=== PATIENT | female | born 1950 | race Hispanic/Latino ===

== ENCOUNTER 2022-02-18 06:11 | Day surgery (SDC) | payer OTHER ==
[2022-02-13 10:04] LABS: BUN Blood Urea Nitrogen 18 mg/dL (7-18); Bicarbonate 31 mmol/L (21-32); Glucose Level 117 mg/dL (74-106); Potassium 3.9 mmol/L (3.5-5.1); Sodium Level 142 mmol/L (136-145)
[2022-02-18] MEDS ORDERED: Ringers Lactate 1,000 ML IV ONE ×2 (06:36→09:29)
[2022-02-18] MEDS ORDERED: CEFAZOLIN/SWI 2gm 2 GM/20 ML SYR ONE (06:37)
[2022-02-18] MEDS ORDERED: ROCURONIUM 50 MG/5 ML VIAL IV ONE (06:42)
[2022-02-18] MEDS ORDERED: propofoL 200 MG/20 ML VIAL IV ONE (06:42)
[2022-02-18] MEDS ORDERED: FENTANYL CITR 100 MCG/2 ML ONE (06:42)
[2022-02-18] MEDS ORDERED: MIDAZOLAM HCL 2 MG/2 ML INJ ONE (06:43)
[2022-02-18] MEDS ORDERED: ONDANSETRON 4 MG/2 ML VIAL ONE (06:43)
[2022-02-18] MEDS ORDERED: LIDOCAINE 2% MPF 5 ML VIAL ONE (06:43)
[2022-02-18] MEDS ORDERED: ACETAMINOPHEN 500 MG TAB ONE (06:56)
[2022-02-18] MEDS ORDERED: LIDOCAINE 1% W/EPI 1:100,000 10 ML VIAL ONE (06:56)
[2022-02-18] MEDS: BUPIVACAINE 0.25% PF 10 ML VIAL ONE ×2 (08:07→08:17)
[2022-02-18] MEDS ORDERED: EPHEDRINE SULF 50 MG/ML VIAL ONE (08:14)
[2022-02-18] MEDS ORDERED: LIDOCAINE 1% MPF 30 ML VIAL ONE (08:34)
[2022-02-18 12:35] VITALS: BP 116/54; TEMP 97.5; O2SAT 97
--- NOTE | 2022-02-18 17:22 | RAD REPORT ---
EXAM DESCRIPTION: RAD - Fluoroscopy <1 Hour - 02/18/2022 5:04 pm FINDINGS: There were 43 portable C-arm images submitted from a fluoroscopic assisted sacral neural m odulation procedure. No suspicious or unexpected findings. Fluoro time was 4.8 minutes. Cumulative dose was 83.0 mGy.
== END 2022-02-18 11:45 | disposition home or self-care (01) ==
LOC: OR 06:11
PROVIDERS: ATTEND Obstetrics & Gynecology
PROC: 4A1104G Monitoring of Peripheral Nervous Electrical Activity, Intraoperative, Open Approach (ICD-10-PCS; principal; 2022-02-18 07:30)
DX: N32.81 Overactive bladder (principal); N95.2 Postmenopausal atrophic vaginitis; R39.14 Feeling of incomplete bladder emptying; Z20.822 Contact with and (suspected) exposure to COVID-19
CPT/HCPCS: 53899; 80048; 36415; U0002; J2704; J2250; J3010; J0690; J7120 ×2; J2405; 76000

== ENCOUNTER 2022-03-07 06:40 | Day surgery (SDC) | payer OTHER ==
[2022-03-07] MEDS ORDERED: Ringers Lactate 1,000 ML IV ONE (06:59)
[2022-03-07] MEDS ORDERED: LIDOCAINE 1% W/EPI 1:100,000 MDV 50 ML VIAL ONE (06:59)
[2022-03-07] MEDS ORDERED: CEFAZOLIN/SWI 2gm 2 GM/20 ML SYR ONE (06:59)
[2022-03-07] MEDS ORDERED: FENTANYL CITR 100 MCG/2 ML ONE (08:23)
[2022-03-07] MEDS ORDERED: propofoL 200 MG/20 ML VIAL IV ONE ×2 (08:23)
[2022-03-07] MEDS ORDERED: LIDOCAINE 2% MPF 5 ML VIAL ONE (08:23)
[2022-03-07] MEDS ORDERED: MIDAZOLAM HCL 2 MG/2 ML INJ ONE (08:23)
[2022-03-07 08:50] VITALS: BP 116/46; TEMP 97.2; O2SAT 100
--- NOTE | 2022-03-27 10:20 | OP ---
Date of Procedure: 03/08/2022 Surgeon: Priscila Bowie MD Switchboard Mechanic: None. Preoperative Diagnosis: Refractory overactive bladder and status post stage I InterStim. Patient be ing taken for permanent lead connection to the battery and implantation of battery. Postoperative Diagnoses: Refractory overactive bladder and status post stage I InterStim. Patient b eing taken for permanent lead connection to the battery and implantation of battery and scarred conne ctor leading to lead fracture, fractured tined lead. Procedure Performed: Removal of tined lead. Anesthesia: MAC plus local. Ebl: Minimal. Patient's condition is stable. No complications. No drains. Indications: The patient is a 71-year-old ready for implantation of the battery, consented and broug ht to the OR on the testing after stage I, the patient had an excellent response, despite lack of mot or response after initial stimulation placement. She had extremely good success in response to her urinary urgency and frequency, she wanted to go to the bladder replacement, however, on the day that she was seen in day 5 in the office with good respo nse, her wire had fractured from the connector to the external stimulator and this is most likely fro m her constant movement and turning around. The patient denied any physical manipulation of the lead leading to its fracture, so knowing and understanding that this was a problem, the patient had gone out for a trip and then returned for this procedure. She was taken back to the OR. 2 g of Ancef wer e given. SCD's were placed and started. Time-out was done. The procedure was started. Description Of Procedure: The patient was placed in prone position. Local area was prepped and drap ed and draped in a sterile fashion. Then, the lead that was extending out to the external stimulator seemed to be really pulled out, as the silk stitch that was tied to keep the unwinding of this wire had already come out through the external opening on the contralateral buttock, so a careful incision was made at the site where the battery would be implanted after injecting 0.25% Marcaine. Then, the incision was opened up. Then carefully using the lead that was identified here at this spot, a pocke t was made for the battery superiorly and inferiorly in a proper plane. Then, the lead wire was gent ly attempted to be pulled, as this seemed to be scarred and significantly pulled out towards the oppo site incision. Then, a tunnel was made with the help of a hemostat to gently pull the percutaneous e xtension, as I tried to pull this, there appeared to be lengthening of the lead, however, gently this connector was pulled out with the help of hemostats. Then, the hex wrench was used to loosen the 4 set screws, as this lead was pulled out through the connector and there was an area of the insulation outside the lead, connecting to the quadripolar leads, was exposed because of the fracture of insula tion and pulling of the inner wires, so this made the lead completely useless for leaving in place fo r implantation, so I went ahead and opened the incision and closed the sacrum on the left side, opene d up the incision and grasped the tined lead wire of a hemostat and with gentle constant tugs, the ti shan lead was pulled out through the foramina and the wire was completely retrieved through the batter y pocket incision. Once this was done, the entire lead was removed from both sides. The incision at the exit site of the contralateral site was closed with the help of 3-0 chromic. Then, the battery site was closed with the help of 3-0 chromic in 2 layers and then the parasacral incision was also cl osed with the help of 3-0 chromic with interrupted sutures. Hemostasis was excellent. EBL was minim al. There was complete removal of the tined lead. The patient was recovered from anesthesia and ins trument and sponge counts were correct at the end of the case. Estimated Blood Loss: Minimal. She was taken to PACU in stable condition and her was explained about the findings and the pr oblems of this placement. I advised the patient later when she was awake to proceed with stage I and stage II at the next appoi ntment, we will see her in the office and plan all this after . RADHA/TATYANA Voice ID: [id number] Report ID: [id number]
== END 2022-03-07 09:15 | disposition home or self-care (01) ==
LOC: OR 06:40
PROVIDERS: ATTEND Obstetrics & Gynecology
PROC: 01PY0MZ Removal of Neurostimulator Lead from Peripheral Nerve, Open Approach (ICD-10-PCS; principal; 2022-03-07 07:30)
DX: N32.81 Overactive bladder (principal); N95.2 Postmenopausal atrophic vaginitis; R39.14 Feeling of incomplete bladder emptying; E78.00 Pure hypercholesterolemia, unspecified; Z20.822 Contact with and (suspected) exposure to COVID-19
CPT/HCPCS: 64585; U0003; J2704 ×2; J2250; J3010; J0690; J7120

== ENCOUNTER 2022-06-02 10:42 | Day surgery (SDC) | payer OTHER ==
[2022-05-14 14:02] LABS: SARS-CoV-2 Antigen Rapid Res Negative (Negative)
[2022-06-02] MEDS ORDERED: Ringers Lactate 1,000 ML IV ONE ×2 (11:01→13:35)
[2022-06-02] MEDS: BUPIVACAINE 0.25% PF 30 ML VIAL ONE ×2 (11:41→12:33)
[2022-06-02] MEDS ORDERED: LIDOCAINE 1% 20 ML MDV ONE (11:43)
[2022-06-02] MEDS ORDERED: MIDAZOLAM HCL 2 MG/2 ML INJ ONE (11:56)
[2022-06-02] MEDS ORDERED: FENTANYL CITR 100 MCG/2 ML ONE (11:56)
[2022-06-02] MEDS ORDERED: LIDOCAINE 2% MPF 5 ML VIAL ONE (11:56)
[2022-06-02] MEDS ORDERED: propofoL 200 MG/20 ML VIAL IV ONE (11:56)
[2022-06-02] MEDS ORDERED: ROCURONIUM 50 MG/5 ML VIAL IV ONE (11:56)
[2022-06-02] MEDS ORDERED: ONDANSETRON 4 MG/2 ML VIAL ONE (11:56)
[2022-06-02] MEDS: CEFAZOLIN 2 GM IN 0.9% NACL 2 GM/100 ML BAG ONE ×2 (12:10→12:20)
[2022-06-02] MEDS ORDERED: KETOROLAC 30 MG/ML INJ ONE (13:54)
--- NOTE | 2022-06-02 15:20 | RAD REPORT ---
EXAM DESCRIPTION: RAD - Fluoroscopy <1 Hour - 06/02/2022 3:12 pm FINDINGS: Frontal and lateral portable C-arm views were obtained during sacral neurostimulator wire positioning. Fluoro time was 114.9 seconds.
[2022-06-02 16:04] VITALS: BP 122/65; TEMP 97.1; O2SAT 100
== END 2022-06-02 15:50 | disposition home or self-care (01) ==
LOC: OR 10:42
PROVIDERS: ATTEND Obstetrics & Gynecology
PROC: 01HY0MZ Insertion of Neurostimulator Lead into Peripheral Nerve, Open Approach (ICD-10-PCS; principal; 2022-06-02 12:00)
PROC: 0JH70BZ Insertion of Single Array Stimulator Generator into Back Subcutaneous Tissue and Fascia, Open Approach (ICD-10-PCS; 2022-06-02 12:00)
DX: N32.81 Overactive bladder (principal); N39.41 Urge incontinence; E78.00 Pure hypercholesterolemia, unspecified; Z20.822 Contact with and (suspected) exposure to COVID-19
CPT/HCPCS: 64581; 64590; 36415; 87811; J2704; J2250; J3010; J0690; J7120 ×2; J2405; 76000

== ENCOUNTER 2024-02-25 12:58 | Emergency (ER) | payer OTHER ==
--- NOTE | 2024-02-25 13:50 | ER ---
Nurse's Notes [facility] Name: Leticia Royal Age: 73 yrs Sex: Female : 1950 Arrival Date: 02/25/2024 Time: 12:58 Bed 14 Private MD: Diagnosis: Epistaxis Presentation: 02/24 13:23 Chief complaint: Patient states: nose bleed off and on x2 days and started bleeding as6 again this morning. Coronavirus screen: At this time, the client does not indicate any symptoms associated with coronavirus-19. Ebola Screen: No symptoms or risks identified at this time. Initial Sepsis Screen: Does the patient meet any 2 criteria? No. Patient's initial sepsis screen is negative. Does the patient have a suspected source of infection? No. Patient's initial sepsis screen is negative. Risk Assessment: Do you want to hurt yourself or someone else? Patient reports no desire to harm self or others. Onset of symptoms was February 25, 2024. 13:23 Acuity: SUSY 4 as6 13:23 Method Of Arrival: Ambulatory as6 Historical: - Allergies: 13:23 No Known Allergies; as6 - PMHx: 13:23 High Cholesterol; Diabetes mellitus; as6 - PSHx: 13:23 breast implant removal; as6 - Immunization history:: Adult Immunizations up to date. - Infectious Disease History:: Denies. - Social history:: Smoking status: Patient denies any tobacco usage or history of. Screenin:04 [facility] ED Fall Risk Assessment (Adult) History of falling in the last 3 months, me1 including since admission No falls in past 3 months (0 pts) Confusion or Disorientation No (0 pts) Intoxicated or Sedated No (0 pts) Impaired Gait No (0 pts) Mobility Assist Device Used No (0 pt) Altered Elimination No (0 pt) Score/Fall Risk Level 0 - 2 = Low Risk Maintained a safe environment, Provided non-skid footwear, Hourly rounding (assess needs \T\ fall precautionary measures) done. Abuse screen: Denies threats or abuse. Nutritional screening: No deficits noted. Tuberculosis screening: No symptoms or risk factors identified. Assessment: 14:04 General: Appears comfortable, well groomed, well developed, well nourished, Behavior is me1 calm, cooperative, appropriate for age, Reports nose bleed off and on x2 days and started bleeding again this morning. Pain: Denies pain. Neuro: Level of Consciousness is awake, alert, obeys commands, Oriented to person, place, time, situation, Appropriate for age. Cardiovascular: Capillary refill < 3 seconds Patient's skin is warm and dry. Respiratory: Airway is patent Respiratory effort is even, unlabored, Respiratory pattern is regular, symmetrical. GI: No signs and/or symptoms were reported involving the gastrointestinal system. : No signs and/or symptoms were reported regarding the genitourinary system. EENT: Reports nose bleed off and on x2 days and right nare started bleeding again this morning . Derm: Skin is intact, is healthy with good turgor, Skin is pink, warm \T\ dry. Musculoskeletal: No signs and/or symptoms reported regarding the musculoskeletal system. Vital Signs: 13:22 BP 135 / 71; Pulse 89; Resp 18 S; Temp 98.4(TE); Pulse Ox 100% on R/A; Weight 65.77 kg as6 (R); Height 5 ft. 5 in. (R); Pain 0/10; 14:00 BP 119 / 60; Pulse 89; Resp 16; Pulse Ox 98% on R/A; me1 13:22 Body Mass Index 24.13 (65.77 kg, 165.1 cm) as6 13:22 Pain Scale: Adult as6 ED Course: 13:01 Patient arrived in ED. mg5 13:22 Arm band placed on. as6 13:24 Triage completed. as6 13:25 Donya Jarrett MD is Attending Physician. sp3 13:28 Trini Ritter, JH is Primary Nurse. me1 14:04 Patient has correct armband on for positive identification. Bed in low position. Call me1 light in reach. Side rails up X 1. Provided Education on: POC. Verbalized understanding. . 14:04 No provider procedures requiring assistance completed. me1 14:09 Patient did not have IV access during this emergency room visit. me1 Administered Medications: 13:54 Drug: Oxymetazoline Intranasal Drops (0.05 %) 1 sprays Intranasal once; Right nostril; me1 Give remainder of bottle to patient Route: Intranasal; Site: right nare; 14:07 Follow up: Response: No adverse reaction me1 Medication: 14:04 VIS not applicable for this client. me1 Outcome: 13:50 Discharge ordered by . sp3 14:12 Discharged to home ambulatory, me1 14:12 Condition: stable 14:12 Discharge instructions given to patient, Instructed on discharge instructions, follow up and referral plans. Demonstrated understanding of instructions, follow-up care, 14:12 Patient left the ED. me1 Signatures: Donya Jarrett MD MD sp3 Gus Baires RN RN as6 Trini Ritter RN RN me1 Addie Palmer mg5 Corrections: (The following items were deleted from the chart) 14: 13:23 Chief complaint: Patient states: nose bleed off and on x2 days and started me1 bleeding again this morning as6
--- NOTE | 2024-02-25 13:50 | EDPHYS ---
Physician Documentation [facility] Name: Leticia Royal Age: 73 yrs Sex: Female : 1950 Arrival Date: 02/25/2024 Time: 12:58 Bed 14 Private MD: ED Physician Donya Jarrett HPI: 02/24 13:47 This 73 yrs old Female presents to ER via Ambulatory with complaints of Nose sp3 Bleed. 13:47 73-year-old female with history of diabetes, hyperlipidemia presents with right sp3 nosebleed since yesterday. Patient states she had dental work done 4 days ago with a used anesthetic in her mouth but nothing on the nose. No other potential related history. She denies any bleeding anywhere else and is not on any antiplatelet or anticoagulant agents. She denies headache, neck pain, nausea, vomiting, diarrhea, abdominal pain, chest pain, shortness of breath, bleeding anywhere else or any other signs or symptoms on ROS at this time.. Historical: - Allergies: 13:23 No Known Allergies; as6 - PMHx: 13:23 High Cholesterol; Diabetes mellitus; as6 - PSHx: 13:23 breast implant removal; as6 - Immunization history:: Adult Immunizations up to date. - Infectious Disease History:: Denies. - Social history:: Smoking status: Patient denies any tobacco usage or history of. ROS: 13:48 Constitutional: Negative for fever, chills, and weight loss, Eyes: Negative for injury, sp3 pain, redness, and discharge, Neck: Negative for injury, pain, and swelling, Cardiovascular: Negative for chest pain, palpitations, and edema, Respiratory: Negative for shortness of breath, cough, wheezing, and pleuritic chest pain, Abdomen/GI: Negative for abdominal pain, nausea, vomiting, diarrhea, and constipation, Back: Negative for injury and pain, MS/Extremity: Negative for injury and deformity, Skin: Negative for injury, rash, and discoloration, Neuro: Negative for headache, weakness, numbness, tingling, and seizure, Psych: Negative for depression, anxiety, suicide ideation, homicidal ideation, and hallucinations, Allergy/Immunology: Negative for hives, rash, and allergies, Endocrine: Negative for neck swelling, polydipsia, polyuria, polyphagia, and marked weight changes, 13:48 All other systems are negative, Exam: 13:48 Constitutional: This is a well developed, well nourished patient who is awake, alert, sp3 and in no acute distress. Head/Face: Normocephalic, atraumatic. Eyes: Pupils equal round and reactive to light, extra-ocular motions intact. Lids and lashes normal. Conjunctiva and sclera are non-icteric and not injected. Cornea within normal limits. Periorbital areas with no swelling, redness, or edema. Neck: Trachea midline, no thyromegaly or masses palpated, and no cervical lymphadenopathy. Supple, full range of motion without nuchal rigidity, or vertebral point tenderness. No Meningismus. Chest/axilla: Normal chest wall appearance and motion. Nontender with no deformity. No lesions are appreciated. Cardiovascular: Regular rate and rhythm with a normal S1 and S2. No gallops, murmurs, or rubs. Normal PMI, no JVD. No pulse deficits. Respiratory: Lungs have equal breath sounds bilaterally, clear to auscultation and percussion. No rales, rhonchi or wheezes noted. No increased work of breathing, no retractions or nasal flaring. Abdomen/GI: Soft, non-tender, with normal bowel sounds. No distension or tympany. No guarding or rebound. No evidence of tenderness throughout. Back: No spinal tenderness. No costovertebral tenderness. Full range of motion. Skin: Warm, dry with normal turgor. Normal color with no rashes, no lesions, and no evidence of cellulitis. MS/ Extremity: Pulses equal, no cyanosis. Neurovascular intact. Full, normal range of motion. Neuro: Awake and alert, GCS 15, oriented to person, place, time, and situation. Cranial nerves II-XII grossly intact. Motor strength 5/5 in all extremities. Sensory grossly intact. Cerebellar exam normal. Normal gait. Psych: Awake, alert, with orientation to person, place and time. Behavior, mood, and affect are within normal limits. 13:48 ENT: Dried blood and small fresh clot on the right nostril. No active bleeding.. Vital Signs: 13:22 BP 135 / 71; Pulse 89; Resp 18 S; Temp 98.4(TE); Pulse Ox 100% on R/A; Weight 65.77 kg as6 (R); Height 5 ft. 5 in. (R); Pain 0/10; 14:00 BP 119 / 60; Pulse 89; Resp 16; Pulse Ox 98% on R/A; me1 13:22 Body Mass Index 24.13 (65.77 kg, 165.1 cm) as6 13:22 Pain Scale: Adult as6 MDM: 13:30 Patient medically screened. sp3 13:48 Data reviewed: vital signs, nurses notes. ED course: 73-year-old female with sp3 spontaneous epistaxis of the right knee are now controlled with no active bleeding. We will instill Afrin nose spray and I have extensively educated patient on epistaxis control at home using both direct pressure as well as Afrin. Blood pressure is within normal limits and vital signs are otherwise normal. She is in no acute distress. Follow-up with PCP as needed.. Administered Medications: 13:54 Drug: Oxymetazoline Intranasal Drops (0.05 %) 1 sprays Intranasal once; Right nostril; me1 Give remainder of bottle to patient Route: Intranasal; Site: right nare; 14:07 Follow up: Response: No adverse reaction me1 Disposition Summary: 02/25/24 13:50 Discharge Ordered Notes: Location: Home sp3 Condition: Stable sp3 Diagnosis - Epistaxis sp3 Followup: sp3 - With: Private Physician - When: Upon discharge from the Emergency Department - Reason: Continuance of care Discharge Instructions: - Discharge Summary Sheet sp3 - Nosebleed, Adult sp3 Forms: - Medication Reconciliation Form sp3 - Thank You Letter sp3 - Antibiotic Education sp3 - Prescription Opioid Use sp3 - Patient Portal Instructions sp3 - Leadership Thank You Letter sp3 Signatures: Donya Jarrett MD MD sp3 Gus Baires, JH RN as6 Trini Ritter RN RN me1
[2024-02-25] MEDS ORDERED: OXYMETAZOLINE HCL 0.05% 15ML NAS ONE (13:53)
[2024-02-25 22:45] VITALS: BP 119/60; TEMP 98.4; O2SAT 98
== END 2024-02-25 14:12 | disposition home or self-care (01) ==
LOC: ER 12:58
DX: R04.0 Epistaxis (principal); Z98.818 Other dental procedure status
CPT/HCPCS: 99283

== ENCOUNTER 2025-01-17 12:01 | Observation (INO) | payer OTHER ==
[2025-01-17 14:52] VITALS: BMI 22.3
[2025-01-17] MEDS ORDERED: SODIUM CHLORIDE 0.9% 10ML INJ IV PRN (15:03)
[2025-01-17] MEDS ORDERED: ONDANSETRON 4 MG/2 ML VIAL IV PRN (15:03)
[2025-01-17] MEDS ORDERED: MORPHINE 4 MG/ML SYR IV PRN (15:04)
[2025-01-17 15:44] LABS: Absolute Eosinophils 0.1 K/uL (0-0.5); Absolute Lymphocytes (CBC) 1.9 K/uL (0.7-4.9); Absolute Monocytes 0.4 K/uL (0.1-1.3); Absolute Neutrophil 3.4 K/uL (1.8-8.0); Basophils % 0.8 % (0-1.3); Eosinophils % 1.9 % (0-4.4); Hematocrit 35.8 % (36.0-45.0); Hemoglobin 11.8 g/dL (12.0-15.0); Lymphocytes % 32.1 % (15.3-44.8); MCH 26.1 pg (27.0-35.0); MCV 78.9 fL (80-100); MPV 7.8 fL (7.6-11.3); Monocytes % 7.3 % (3.3-12.3); Neutrophils % 57.9 % (41.7-73.7); Nucleated Red Blood Cells % 0.1 % (0-0); Platelets 265 thou/uL (152-406); RBC Red Blood Cell Count 4.54 M/uL (3.86-4.86); Red Cell Distribution Width 14.6 % (12.1-15.2)
[2025-01-17 16:00] LABS: Albumin/Globulin Ratio 0.8 (1.1-1.8); Anion Gap 6.9 mEq/L (5.0-15.0); Bilirubin Total 0.4 mg/dL (0.2-1.0); Globulin 3.6 g/dL (2.3-3.5); Magnesium 2.3 mg/dL (1.6-2.4); Potassium 3.9 mEq/L (3.5-5.1); Protein, Total 6.6 g/dL (6.4-8.2)
--- NOTE | 2025-01-17 16:46 | RAD REPORT ---
EXAMINATION: TWO VIEW CHEST XR CLINICAL INDICATION: abd pain TECHNIQUE: 2 views of the chest was performed. COMPARISON: 07/11/2008 FINDINGS: The lungs are well inflated and clear. The heart is normal in size. No displaced fractures evident. IMPRESSION: No acute or significant abnormalities.
[2025-01-17] MEDS: PANTOPRAZOLE 40 MG INJ IVP ONE (18:08)
[2025-01-17] MEDS: NA CHLORIDE 0.9% 1,000 ML IV SCH (18:09)
[2025-01-17 18:45] LABS: Specific Gravity 1.019 (1.005-1.030); Sqamous Epithelial <5 /HPF (None Seen); Urine Bacteria <20 /HPF (<20); Urine Bilirubin NEGATIVE (Negative); Urine Blood Trace (Negative); Urine Clarity Extremely Turbid (Clear); Urine Color Light-Yellow (Yellow); Urine Culture Reflex Order REFLEXED; Urine Glucose NEGATIVE (Negative); Urine Ketones 2+ (Negative); Urine Microscopic Reflex YN ORDER UMIC; Urine Mucus Slight /HPF (None Seen); Urine Nitrite NEGATIVE (Negative); Urine Protein NEGATIVE (Negative); Urine RBC <5 /HPF (None Seen); Urine Urobilinogen Normal (Normal); Urine pH 5.5 (5.0-7.0)
--- NOTE | 2025-01-17 20:15 | RAD REPORT ---
EXAM: Right upper quadrant ultrasound. CLINICAL HISTORY: abd pain COMPARISON: None. FINDINGS: Gallbladder: Normal. Bile ducts: No intrahepatic or extrahepatic biliary dilatation. Common bile duct measures 3 mm. Limited imaging of the liver shows no concerning finding. IMPRESSION: Unremarkable exam.
--- NOTE | 2025-01-17 21:15 | RAD REPORT ---
EXAMINATION: CT ABDOMEN AND PELVIS WITH CONTRAST CLINICAL INDICATION: abd pain TECHNIQUE: CT abdomen and pelvis was performed, after the administration of IV contrast, as per [facility] protocol. Axial, sagittal and coronal reconstructions were obtained. One or more of the following dose reduction techniques were used: Automated exposure control, adjustment of the mA and k V according to patient size, and iterative reconstruction. Unless otherwise specified, incidental findings do not require dedicated imaging follow-up. COMPARISON: 05/26/2023 FINDINGS: LOWER CHEST: The visualized lung bases are clear. There is a thickened appearance to the stomach wall with a few surrounding lymph nodes in the lesser curvature. LIVER: Multiple hepatic lesions are present most compatible with cysts. There is a 6-7 cm centrally e nhancing lesion in the left lobe of the liver partially filling in on delayed sequence likely large hemangioma. Grossly unremarkable gallbladder. SPLEEN: Normal size. No focal lesion. PANCREAS: No mass, ductal dilation, or karina-pancreatic fluid. ADRENALS: Normal; no mass. KIDNEYS: Normal size and contour. No hydronephrosis. GASTROINTESTINAL TRACT: No evidence of free air, significant intra-abdominal free fluid, bowel obstru ction or abscess. Moderate stool is present throughout the colon. APPENDIX: Normal appendix. LYMPH NODES: No lymphadenopathy. MUSCULOSKELETAL: Mild anterolisthesis with bilateral spondylolysis L5-S1 chronic. ADDITIONAL FINDINGS: None. IMPRESSION: There is an abnormal appearance to the stomach wall which appears somewhat edematous and thickened. S everal prominent lymph nodes are seen in the adjacent fat. Recommend upper endoscopy for further evaluation. Large benign hepatic hemangioma.
--- NOTE | 2025-01-17 21:54 | HP ---
Date of Admission: 01/17/2025 Chief Complaint: Abdominal pain, nausea, vomiting. History Of Present Illness: Ms. Royal is a very pleasant 74-year-old female patient who came into office today with upper abdominal pain going on for last 9 days. The patient describes her pain as upper abdominal pain all across her upper abdomen and pain is intermittent. Her pain does not radiat e to any other body region. There is no aggravating factor or relieving factor for this pain. Her a ssociated symptoms are nausea, vomiting and she vomits few times a day. Denies any hematemesis. Den ies any fever, chills, constipation, diarrhea. Denies any blood in stool. No rash on her skin. No burning sensation with urination or any blood in urine. After she was evaluated in the emergency jeff , she was admitted to the hospital. Review of Systems: GI: As mentioned above. All other systems reviewed and negative. Allergies: TO HYDROCODONE, CAUSING NAUSEA AND VOMITING. Medications: Ezetimibe 10 mg daily, rosuvastatin 5 mg daily, Mounjaro 2.5 mg every 2 weeks, vitamin B12 1000 mcg daily. Past Medical History: DICTATION ENDS HERE. AILYN/TATYANA Voice ID: [id number]
--- NOTE | 2025-01-17 22:34 | HP ---
Date of Admission: 01/17/2025 Addendum: Past Medical History: Significant for type 2 diabetes mellitus, hyperlipidemia, liver cyst, liver he mangioma, overactive bladder, prior history of recurrent urinary tract infection, lumbar spondylosis, osteoarthritis at multiple sites. Past Surgical History: Significant for liver biopsy done on April 21, 2018, showing hemangioma, C-sec tion, bladder suspension on December 13, 2020, left shoulder surgery on 07/20/2024, left knee arthrosc opy surgery, breast implant removal on June 22, 2023. Family History: Father , details unknown. Mother , had diabetes and dementia. Sister with diabetes. Brother is alive and well. Social History: Negative for smoking and alcohol use. Physical Examination: Vital Signs: Blood pressure was 93/55, pulse 85, respiratory rate 15, temperature 98.1, weight 133.6 pounds, height 65 inches. General: Awake, alert, oriented, not in distress. HEENT: Head atraumatic, normocephalic. Conjunctivae nonerythematous. Sclerae white. Mouth, no thr ush or edema noted. Ears/Nose, no mass, lesion, discharge noted. Neck: Supple. No JVD, lymph nodes, bruit, thyromegaly noted. Lungs: Bilateral good equal air entry. Clear to auscultation. No rhonchi. No rales. Heart: Normal heart sounds, no murmur or gallop. Abdomen: Abdomen shows presence of tenderness all across upper abdomen involving right upper quadran t, epigastric, and left upper quadrant region. Abdomen is not distended. No guarding. No rigidity. No rebound tenderness. No distention. Bowel sounds normoactive. No hepatosplenomegaly. Extremities: No leg edema. No calf tenderness. Skin: No rash, ulcer, cellulitis. Lymphatics: No lymph node enlargement in neck, supraclavicular, infraclavicular region. Neuro: No focal neurological deficit. Chest: Unremarkable. External Genitalia: Deferred. Rectal: Deferred. Laboratory Data: WBC 5.8, hemoglobin 11.8, platelets 265. Sodium 138, potassium 3.9, chloride 107, bicarb 28, BUN 16, creatinine 0.52, glucose 100. Liver function tests normal. Lipase 26. Chest x-r ay, no acute cardiopulmonary changes. Urinalysis pending. Impression: 1. Abdominal pain, upper abdominal region. 2. Type 2 diabetes mellitus. 3. Hyperlipidemia. 4. Liver cyst. 5. Liver hemangioma. 6. Osteoarthritis, multiple sites. 7. Overactive bladder. Plan: We will admit the patient to hospital for further evaluation and management of this problem. The patient is appropriate for observation. Different possibilities and differential diagnosis discu ssed with her, which includes either symptomatic gallstones or acute cholecystitis, acute gastritis o r peptic ulcer disease, and possibility of pancreatitis. All this different possibilities discussed with her. We will go ahead and keep her n.p.o., IV fluid was started with normal saline at 100 cc/ho ur and we will use morphine and Zofran for pain and nausea respectively. SCD was ordered for DVT pro phylaxis. We will also start her on IV pantoprazole 40 mg daily, first dose today. After blood work results reviewed, CAT scan of the abdomen with contrast, as well as right upper quadrant abdominal u ltrasound was ordered, we will follow up on this results once the test is done. Urinalysis was order ed which is still pending, we will follow up on that. For her diabetes, she will not require any fur ther medical intervention at this point and for her hyperlipidemia, no need to resume her home medica tion at this point since she is n.p.o. and no need for further intervention. Total time spent today was 80 minutes including review of prior office visit record, evaluation and m anagement today, and making arrangements for hospital admission. I will see her tomorrow morning for followup. AILYN/TATYANA Voice ID: [id number]
[2025-01-18] MEDS: PANTOPRAZOLE 40 MG INJ IVP SCH (08:25)
[2025-01-18 08:49] VITALS: BP 96/55; TEMP 98.3
--- NOTE | 2025-01-18 21:10 | DS ---
Date of Discharge: 01/18/2025 Disposition: Discharged to go home. Physical Examination: HEENT: Unremarkable. Lungs: Clear to auscultation. Heart: Sounds normal. Abdomen: Soft. Bowel sounds normal. No guarding, rigidity, tenderness, distention. Extremities: No leg edema. Discharge Diagnoses: 1. Acute gastritis. 2. Upper abdominal pain. 3. Type 2 diabetes mellitus. 4. Hyperlipidemia. 5. Liver cyst. 6. Liver hemangioma. 7. Osteoarthritis, multiple sites. 8. Overactive bladder. Laboratory Data: Upon admission, , . Diagnostic Data: Right upper quadrant abdominal ultrasound was negative for any acute changes of gal lbladder or biliary tree. CAT scan of the abdomen and pelvis with contrast shows multiple hepatic cy sts without any worrisome finding and liver hemangioma. Chest x-ray unremarkable. Hospital Course: This is a 74-year-old pleasant female patient who was admitted to the hospital with complaints of upper abdominal pain, nausea, vomiting. Please see dictated H and P for more informat ion. After the patient was evaluated at office yesterday, she was admitted to hospital for observati on. After she came in, we started her on IV fluid, IV Zofran and pain medication was ordered. The p atient was also started on IV Protonix. This morning, when I saw her, her symptoms of abdominal pain , nausea, and vomiting have completely resolved and she was feeling much better. No new complaints o r problems reported by her overnight. She did receive 1 dose of pantoprazole IV yesterday upon admis manuelito. Her CAT scan has shown thickening of the lining of the stomach wall along with some enlarged l ymph nodes along the lesser curvature. I have discussed details regarding her CAT scan findings with her and suggested her to have a followup with her contract technical writer on outpatient basis for this ab normality detected on the CAT scan. The patient was also instructed not to take any medications like aspirin, Aleve, Motrin, ibuprofen, etc. Discharge Medications And Instructions: 1. Continue all prior home medications. 2. Do not take any aspirin, Aleve, Motrin, naproxen, ibuprofen type of medications. 3. Avoid hot spicy food. 4. Start pantoprazole 40 mg take 1 tablet by mouth daily 30 minutes before breakfast. 5. Follow up at my office next week and I will refer her to see her contract technical writer, Dr. Palacios, for further outpatient workup for abnormality detected on the CAT scan, as the patient will require EGD. Total time spent, 40 minutes. AILYN/MODL Voice ID: [id number] Report ID: [id number]
== END 2025-01-18 08:47 | disposition home or self-care (01) ==
LOC: 2ND 14:04
PROVIDERS: ADMIT Internal Medicine; ATTEND Internal Medicine
DX: K29.00 Acute gastritis without bleeding (principal); E11.9 Type 2 diabetes mellitus without complications; E78.5 Hyperlipidemia, unspecified; K76.89 Other specified diseases of liver; M19.90 Unspecified osteoarthritis, unspecified site; N32.81 Overactive bladder; D18.03 Hemangioma of intra-abdominal structures
CPT/HCPCS: 87088; 85025; 81001; 87086; 36415; 83735; 82947 ×2; 83690; 80053; 74177; 71046; 76705; Q9967; J2470 ×2; J7030 ×2; 87077; 87186; G0378; G0379